=== PATIENT | female | born 1960 | race Caucasian/White ===

== ENCOUNTER 2023-11-22 09:41 | Emergency (ER) | payer MEDICARE, OTHER, SELFPAY ==
[2023-11-22 09:47] VITALS: BP 163/93
[2023-11-22 11:12] VITALS: BMI 29.9
--- NOTE | 2023-11-22 11:24 | ED.GENMED ---
History of Present Illness
General
Chief Complaint: Abdominal Pain
Time Seen by Provider: 11/22/23 11:05
Travel History
Have you had any contact with someone who has COVID-19?: No
Do you have any symptoms of coronavirus? Fever > 100 degrees, chills, cough, shortness of breath, sore throat, loss of taste or smell, muscle aches, or headache?: No
History of Present Illness
History of Present Illness:
63-year-old female presents to the emergency department for evaluation of lower abdominal pain. She states it feels comparable to past bouts of diverticulitis. Has never required admission or surgical intervention for her diverticulitis. Denies
any fever, chills, sweats, nausea, vomiting, or diarrhea. Began 2 days ago. Prior history of appendectomy, no other bowel surgeries
Past History
Past History
ED Past Medical History: Other (atopic derm on Dupixant)
ED Past Surgical History: Appendectomy, Gynecological and Other (rhinoplasty, partial thyroidectomy)
Social History
Tobacco: Non-smoker
Personal:
Review of Systems
Review of Systems
Allergies reviewed?: Yes
All Other Systems: ROS reviewed and negative except as documented in HPI and ROS
Phy Exam
Physical Exam
Physical Exam:
GEN: Well appearing, NAD, WDWN
Eyes: PERRLA, EOMs intact, no scleral icterus
HENT: NCAT, oral mucosa moist
Lungs: CTAB, no wheezes, rales, rhonchi, normal chest wall excursion
Cardiac: RRR, no M/R/G, no peripheral edema. Radial pulses 2+ bilat
Abdomen: Soft, moderate to severe tenderness in the left lower quadrant as well as right lower quadrant with positive rebound, no rigidity
Neuro: AO x 3
MSK: No gross deformity or ecchymosis.
Skin: No rashes, petechiae. Normal color, no pallor or jaundice.
Psych: Calm, cooperative, proper hygiene
Course
Orders/Labs/Results
Orders:
Orders
11/22/23 11:24
CT Abd/Pel (IV only)-DH only Urgent
Comment:
Reason For Exam: LLQ pain
11/22/23 11:26
Complete Blood Count/With Diff Urgent
Comprehensive Metabolic Panel Urgent
11/22/23 11:31
Urinalysis Reflex To Culture Urgent
Date Specimen was Collected: 11/22/23
Time Specimen was Collected: 11:29
Urine Microscopic Reflex Cult Urgent
Urine Culture Urgent
MARIA ELENA Source: U
Specimen Description:
Date Specimen was Collected: 11/22/23
Time Specimen was Collected: :
Abnormal Lab Results
11/22/23 11/22/23
11:26 11:31
WBC 11.4 H 10^3/uL
(4.8-10.8)
Absolute Neuts (auto) 8.8 H 10^3/uL
(1.4-6.5)
Absolute Monos (auto) 0.9 H 10^3/uL
(0.1-0.6)
Neutrophils % 77.3 H %
(42.2-75.2)
Lymphocytes % 14.1 L %
(20.5-51.1)
Sodium 134 L mmol/L
(135-145)
Glucose 143 H mg/dl
(70-99)
Total Bilirubin 3.3 H mg/dl
(0.2-1.3)
Urine Ketones Trace A
(Negative)
Ur Occult Blood Reflex 2+ A
(Negative)
Leukocyte Esterase Rfl 2+ A
(Negative)
11/22/23 11:26
11/22/23 11:26
Vital Signs
Initial and Last Documented VS:
Initial Vital Signs
Temp Pulse Resp BP Pulse Ox
99.3 F 94 16 163/93 98
11/22/23 09:47 11/22/23 09:47 11/22/23 09:47 11/22/23 09:47 11/22/23 09:47
Last Documented Vital Signs
Temp Pulse Resp BP Pulse Ox
99.3 F 94 16 163/93 98
11/22/23 09:47 11/22/23 09:47 11/22/23 09:47 11/22/23 09:47 11/22/23 09:47
MDM/Problems Addressed
MDM/Problems Addressed:
CT shows acute diverticulitis without complicating factors such as perforation or abscess. Patient's labs are within reason, she has mild leukocytosis. Urinalysis may represent UTI however this will be covered adequately by the antibiotics. She
is encouraged to adhere to a strict clear liquid diet for the next 48 to 72 hours in addition to antibiotics. Due to penicillin allergy we will treat with ciprofloxacin and metronidazole. Patient is tolerating p.o. fluids thus I do not see any
indication for admission for IV antibiotics. Clinically well, nonseptic
*Critical Care Note
Total Time (30-74mins, 75-104mins- exclusive of procedures): Not Applicable
ED Attending Note
-
Portions of this chart may have been created with voice recognition software.� Occasional wrong word or��sound alike� substitutions may have occurred due to the inherent limitations of voice recognition software.
Discharge Plan
Departure
Patient Disposition: Home (Routine Discharge)
Date of Disposition: 11/22/23
Time of Disposition: 12:55
Patient with high blood pressure during this ER visit?: No
Discharge Problem:
Acute diverticulitis
Instructions: Clear Liquid Diet, Diverticulitis (DC)
Prescriptions:
New
ciprofloxacin HCl 500 mg tablet
500 mg PO BID 10 Days Qty: 20 0RF
metronidazole 500 mg tablet
500 mg PO Q8H 10 Days Qty: 30 0RF
No Action
zinc 25 mg Tablet
25 mg PO .FEW TIMES A WEEK
magnesium 100 mg Tablet
50 mg PO HS
cholecalciferol (vitamin D3) [Vitamin D3] 25 mcg (1,000 unit) Tablet,Chewable
50 mcg PO DAILY
cranberry juice Liquid
1 ea PO .FEW TIMES A WEEK
Dupixent Syringe 300 mg/2 mL Syringe
300 mg SC Q3W
Referrals:
Jai Hooks I., [Family Provider] -
Interventions
Interventions:
*Risk Screen - Suicide Last Done: 11/22/23 11:12
*General Assessment Last Done: 11/22/23 11:12
*Neglect/Abuse Screening Last Done: 11/22/23 11:12
ED- Fall Risk Assessment Last Done: 11/22/23 11:12
*ED COVID-19 Vaccine History Last Done: 11/22/23 09:47
*Nursing Disposition Last Done: 11/22/23 13:04
JT-[id number]-[id number] Assessment Last Done: 11/22/23 11:13
[2023-11-22 11:34] LABS: % Basophils 0.2 % (0-2); % Eosinophils 0.2 % (0-6); % Immature Granulocytes 0.4 % (0-0.5); % Lymphocytes 14.1 % (20.5-51.1); % Monocytes 7.8 % (1.7-9.3); % Neutrophils 77.3 % (42.2-75.2); Absolute Lymphocytes 1.6 10^3/uL (1.2-3.4); Absolute Monocytes 0.9 10^3/uL (0.1-0.6); Absolute Neutrophils 8.8 10^3/uL (1.4-6.5); Hematocrit 41.7 % (37.0-47.0); Hemoglobin 14.6 g/dL (12.0-16.0); Mean Corpuscular Hgb 29.6 pg (27.0-31.0); Mean Corpuscular Volume 84.4 fL (81.0-99.0); Mean Platelet Volume 9.8 fL (7.4-10.4); Nucleated Red Blood Cells % 0 %; Platelet Count 160 10^3/uL (130-400); Red Blood Cell Count 4.94 10^6/uL (4.20-5.40); Red Cell Dist. Width 12.5 % (11.5-14.5); White Blood Cell Count 11.4 10^3/uL (4.8-10.8)
[2023-11-22 11:45] LABS: ALT (SGPT) 21 U/L (0-35); AST (SGOT) 24 U/L (14-36); Albumin 4.3 g/dl (3.5-5.0); Alkaline Phosphatase 88 U/L (38-126); Blood Urea Nitrogen 8 mg/dl (7-17); Carbon Dioxide 25 mmol/L (22-30); Chloride 102 mmol/L (98-107); Estimated Creatinine Clearance 87 ml/min; Glucose 143 mg/dl (70-99); Potassium 3.8 mmol/L (3.5-5.1); Sodium 134 mmol/L (135-145); Total Bilirubin 3.3 mg/dl (0.2-1.3); Total Protein 7.2 g/dl (6.3-8.2); eGFR > 60.00
[2023-11-22 12:14] LABS: Urine Albumin Trace (Neg - Trace); Urine Bilirubin Negative (Negative); Urine Character Clear (Clear); Urine Color Yellow; Urine Glucose Negative (Negative); Urine Ketone Trace (Negative); Urine Leukocyte 2+ (Negative); Urine Nitrite Negative (Negative); Urine Occult Blood 2+ (Negative); Urine Urobilinogen Negative (Neg - 1+)
[2023-11-22 13:30] LABS: Urine Squamous Cell 0-2 /LPF (Few)
[2023-11-22 13:33] LABS: Urine Bacteria Moderate (Negative)
== END 2023-11-22 13:27 | disposition home or self-care (01) ==
LOC: EMR 09:41
PROVIDERS: Physician Assistant; EMERGENCY PHYSICIAN Emergency Medicine; FAMILY PHYSICIAN Internal Medicine
DX: K57.92 Diverticulitis of intestine, part unspecified, without perforation or abscess without bleeding (principal); Z88.6 Allergy status to analgesic agent; Z88.0 Allergy status to penicillin
CPT/HCPCS: 99285; 74177; 80053; 81003; 81015; 85025; 87086; Q9967

== ENCOUNTER 2024-04-16 14:58 | Emergency (ER) | payer MEDICARE, OTHER, SELFPAY ==
[2024-04-16 15:00] VITALS: BP 208/120
[2024-04-16 15:38] VITALS: BP 156/83
[2024-04-16 15:41] VITALS: BMI 30.5
[2024-04-16 15:57] LABS: % Basophils 0.6 % (0-2); % Eosinophils 2.6 % (0-6); % Immature Granulocytes 0.2 % (0-0.5); % Lymphocytes 28.3 % (20.5-51.1); % Monocytes 8.5 % (1.7-9.3); % Neutrophils 59.8 % (42.2-75.2); Absolute Eosinophils 0.1 10^3/uL (0-0.7); Absolute Lymphocytes 1.4 10^3/uL (1.2-3.4); Absolute Monocytes 0.4 10^3/uL (0.1-0.6); Hematocrit 39.8 % (37.0-47.0); Mean Corp Hgb Conc. 35.2 g/dL (33.0-37.0); Mean Corpuscular Hgb 29.1 pg (27.0-31.0); Mean Corpuscular Volume 82.7 fL (81.0-99.0); Mean Platelet Volume 9.4 fL (7.4-10.4); Nucleated Red Blood Cells % 0 %; Platelet Count 157 10^3/uL (130-400); Red Blood Cell Count 4.81 10^6/uL (4.20-5.40); Red Cell Dist. Width 12.4 % (11.5-14.5); White Blood Cell Count 5.1 10^3/uL (4.8-10.8)
[2024-04-16 16:15] LABS: ALT (SGPT) 22 U/L (0-35); AST (SGOT) 32 U/L (14-36); Albumin 4.4 g/dl (3.5-5.0); Alkaline Phosphatase 102 U/L (38-126); Blood Urea Nitrogen 14 mg/dl (7-17); Calcium 9.8 mg/dl (8.4-10.2); Carbon Dioxide 25 mmol/L (22-30); Chloride 104 mmol/L (98-107); Estimated Creatinine Clearance 77 ml/min; Glucose 106 mg/dl (70-99); Sodium 137 mmol/L (135-145); Total Bilirubin 1.7 mg/dl (0.2-1.3); Total Protein 7.2 g/dl (6.3-8.2); eGFR > 60.00
[2024-04-16 16:23] LABS: Troponin I < 0.012 ng/ml
[2024-04-16 16:34] VITALS: BP 147/91
[2024-04-16 17:00] VITALS: BP 137/77
--- NOTE | 2024-04-16 17:10 | ED.GENMED ---
History of Present Illness
General
Chief Complaint: Cardiac Symptoms
Time Seen by Provider: 04/16/24 15:35
History of Present Illness
History of Present Illness:
63-year-old female presents to the emergency department for evaluation of chest pain that began yesterday. She does note that she was doing yard work on Friday however did not have any pain at that time. He was sitting at rest when the pain began
yesterday. Pain is nonpleuritic but does radiate to the thoracic back. Does not radiate to the shoulders of the arms. No paresthesias. No shortness of breath. Denies any exertional nature to the pain. Has never experienced anything similar.
Past History
Past History
ED Past Medical History: Other (atopic derm on Dupixant)
ED Past Surgical History: Appendectomy, Gynecological and Other (rhinoplasty, partial thyroidectomy)
Social History
Tobacco: Non-smoker
Personal:
Review of Systems
Review of Systems
Allergies reviewed?: Yes
All Other Systems: ROS reviewed and negative except as documented in HPI and ROS
Phy Exam
Physical Exam
Physical Exam:
GEN: Well appearing, NAD, WDWN
Eyes: PERRLA, EOMs intact, no scleral icterus
HENT: NCAT, oral mucosa moist
Lungs: CTAB, no wheezes, rales, rhonchi, normal chest wall excursion
Cardiac: RRR, no M/R/G, no peripheral edema. Radial pulses 2+ bilat
Neuro: AO x 3, no focal deficits to BUE/BLE, normal sensation throughout
MSK: No gross deformity or ecchymosis. No edema. No digital clubbing
Skin: No rashes, petechiae. Normal color, no pallor or jaundice.
Psych: Calm, cooperative, proper hygiene
Course
Orders/Labs/Results
Orders:
Orders
04/16/24 15:03
ECG [Electrocardiogram (*1)] Urgent
Reason for Study: Chest Pain
EKG- Treatment ONCE
04/16/24 15:41
CR Chest - 2 Views Urgent
Comment:
Reason For Exam: chest pain
04/16/24 15:48
Complete Blood Count/With Diff Urgent
Comprehensive Metabolic Panel Urgent
Troponin I Urgent
04/16/24 16:36
Ketorolac [Toradol] 15 mg IV NOW STA
Abnormal Lab Results
04/16/24
15:48
Glucose 106 H mg/dl
(70-99)
Total Bilirubin 1.7 H mg/dl
(0.2-1.3)
04/16/24 15:48
04/16/24 15:48
Vital Signs
Initial and Last Documented VS:
Initial Vital Signs
Temp Pulse Resp BP Pulse Ox
98.3 F 86 20 208/120 98
04/16/24 15:00 04/16/24 15:00 04/16/24 15:00 04/16/24 15:00 04/16/24 15:00
Last Documented Vital Signs
Temp Pulse Resp BP Pulse Ox
98.3 F 74 15 156/83 97
04/16/24 15:00 04/16/24 15:45 04/16/24 15:45 04/16/24 15:38 04/16/24 15:45
MDM/Problems Addressed
MDM/Problems Addressed:
63-year-old female presents with nonexertional chest pain that began yesterday. Her EKG is nonischemic and troponin is negative. Patient repeat troponin presents with pain greater than 24 hours. She was markedly hypertensive on arrival however
this gradually trended down to her emergency department stay. She does relate a history of hypertension that she has opted to avoid pharmaceuticals for. Uncertain if this chest pain represents angina at this point, certainly she has risk factors
for with untreated hypertension. Will start her on metoprolol for antianginal and hypertensive benefits as well as low-dose aspirin. Will refer her to cardiology through the chest pain hotline. Chest x-ray is reassuring and there is no evidence
of pulmonary pathology
Comment
Comment:
EKG independently interpreted by me shows normal sinus rhythm at a rate of [address] changes concerning for ischemia
*Critical Care Note
Total Time (30-74mins, 75-104mins- exclusive of procedures): Not Applicable
ED Attending Note
-
Portions of this chart may have been created with voice recognition software.� Occasional wrong word or��sound alike� substitutions may have occurred due to the inherent limitations of voice recognition software.
Discharge Plan
Departure
Patient Disposition: Home (Routine Discharge)
Date of Disposition: 04/16/24
Time of Disposition: 17:28
Patient with high blood pressure during this ER visit?: Yes
Discharge Problem:
Chest pain, Hypertension, uncontrolled
Instructions: Chest Pain CBC Follow Up
Prescriptions:
New
metoprolol succinate 25 mg tablet extended release 24 hr
25 mg PO DAILY Qty: 30 0RF
aspirin 81 mg tablet,chewable
81 mg PO DAILY Qty: 30 0RF
No Action
cholecalciferol (vitamin D3) [Vitamin D3] 25 mcg (1,000 unit) Tablet,Chewable
50 mcg PO DAILY
Dupixent Syringe 300 mg/2 mL Syringe
300 mg SC Q3W
B Complex Tablet Extended Release
1 tab PO .2X WEEKLY
ibuprofen 200 mg Capsule
200 mg PO Q6H PRN (Reason: mild pain)
zinc sulfate 50 mg zinc (220 mg) Tablet
50 mg PO DAILY
ascorbic acid (vitamin C) [Vitamin C] 500 mg Tablet
500 mg PO DAILY
magnesium 250 mg Tablet
250 mg PO .2X WEEKLY
Referrals:
Jai Hooks I., DO [Family Provider] -
Interventions
Interventions:
*Risk Screen - Suicide Last Done: 04/16/24 15:00
*General Assessment Last Done: 04/16/24 15:00
*Neglect/Abuse Screening Last Done: 04/16/24 15:00
ED- Fall Risk Assessment Last Done: 04/16/24 15:56
*ED COVID-19 Vaccine History Last Done: 04/16/24 15:54
ED- Pulmonary Assessment Last Done: 04/16/24 15:56
ED- Cardiac Assessment Last Done: 04/16/24 15:56
Discharge Date and Time
Print Language: LATVIAN
[2024-04-16 18:02] VITALS: BP 137/77
== END 2024-04-16 18:02 | disposition home or self-care (01) ==
LOC: EMR 14:58
PROVIDERS: Physician Assistant; EMERGENCY PHYSICIAN Emergency Medicine; FAMILY PHYSICIAN Internal Medicine
DX: R07.89 Other chest pain (principal); I10 Essential (primary) hypertension; Z90.49 Acquired absence of other specified parts of digestive tract
CPT/HCPCS: 99283; 96374; 71046; 80053; 84484; 85025; 93005

== ENCOUNTER → 2024-05-12 10:17 | Outpatient (REF) | payer MEDICARE, OTHER, SELFPAY | LOC: RCS 10:17 | PROVIDERS: ATTENDING PHYSICIAN Internal Medicine; FAMILY PHYSICIAN Internal Medicine | DX: R00.2 Palpitations (principal) | CPT/HCPCS: 93225; 93226 ==

== ENCOUNTER → 2024-05-17 12:45 | Outpatient (REF) | payer MEDICARE, OTHER, SELFPAY | LOC: RCS 12:45 | PROVIDERS: ATTENDING PHYSICIAN Internal Medicine; FAMILY PHYSICIAN Internal Medicine | DX: R07.9 Chest pain, unspecified (principal); R00.2 Palpitations | CPT/HCPCS: 93017; 93350 ==

== ENCOUNTER → 2024-05-18 07:51 | Outpatient (REF) | payer MEDICARE, OTHER, SELFPAY | LOC: HWRCS 07:51 | PROVIDERS: ATTENDING PHYSICIAN Internal Medicine; FAMILY PHYSICIAN Internal Medicine | DX: R07.9 Chest pain, unspecified (principal) | CPT/HCPCS: 93306 ==

== ENCOUNTER → 2024-05-20 10:29 | Outpatient (REF) | payer MEDICARE, OTHER, SELFPAY ==
[2024-05-20 12:32] LABS: HDL Cholesterol 79 mg/dl; LDL Cholesterol, Calculated 166 mg/dl; Total Cholesterol 273 mg/dl (50-199); Triglyceride 141 mg/dl (10-149); Very Low Density Lipoprotein 28 mg/dl (0-30)
[2024-05-20 12:41] LABS: Glycohemoglobin (HgbA1c) 5.6 % (4.0-5.6)
[2024-05-20 13:03] LABS: TSH 0.45 uIU/ml (0.47-4.68)
== END ==
LOC: REG 10:29
PROVIDERS: ATTENDING PHYSICIAN Internal Medicine; FAMILY PHYSICIAN Internal Medicine
DX: R07.9 Chest pain, unspecified (principal); R73.09 Other abnormal glucose; R94.6 Abnormal results of thyroid function studies
CPT/HCPCS: 36415; 80061; 83036; 84443

== ENCOUNTER 2024-06-25 13:03 | Emergency (ER) | payer MEDICARE, OTHER, SELFPAY ==
[2024-06-25 13:07] VITALS: BP 169/99
[2024-06-25 13:41] LABS: % Basophils 0.2 % (0-2); % Eosinophils 0.2 % (0-6); % Immature Granulocytes 0.2 % (0-0.5); % Lymphocytes 22.7 % (20.5-51.1); % Monocytes 5.5 % (1.7-9.3); % Neutrophils 71.2 % (42.2-75.2); Absolute Lymphocytes 1.2 10^3/uL (1.2-3.4); Absolute Monocytes 0.3 10^3/uL (0.1-0.6); Absolute Neutrophils 3.8 10^3/uL (1.4-6.5); Hematocrit 41.6 % (37.0-47.0); Hemoglobin 14.7 g/dL (12.0-16.0); Mean Corp Hgb Conc. 35.3 g/dL (33.0-37.0); Mean Corpuscular Hgb 29.4 pg (27.0-31.0); Mean Corpuscular Volume 83.2 fL (81.0-99.0); Mean Platelet Volume 9.8 fL (7.4-10.4); Nucleated Red Blood Cells % 0 %; Platelet Count 212 10^3/uL (130-400); Red Cell Dist. Width 12.3 % (11.5-14.5); White Blood Cell Count 5.3 10^3/uL (4.8-10.8)
[2024-06-25 14:05] VITALS: BMI 28.9
[2024-06-25 14:05] LABS: ALT (SGPT) 28 U/L (0-35); AST (SGOT) 35 U/L (14-36); Albumin 4.8 g/dl (3.5-5.0); Alkaline Phosphatase 81 U/L (38-126); Blood Urea Nitrogen 14 mg/dl (7-17); Calcium 9.7 mg/dl (8.4-10.2); Carbon Dioxide 25 mmol/L (22-30); Chloride 104 mmol/L (98-107); Glucose 133 mg/dl (70-99); Sodium 141 mmol/L (135-145); Total Bilirubin 1.5 mg/dl (0.2-1.3); Total Protein 7.7 g/dl (6.3-8.2); eGFR > 60.00
[2024-06-25 14:17] LABS: Troponin I < 0.012 ng/ml
[2024-06-25 14:25] VITALS: BP 134/87
--- NOTE | 2024-06-25 14:42 | ED.GENMED ---
History of Present Illness
General
Chief Complaint: Dizziness
Source: patient
Exam Limitations: none
Time Seen by Provider: 06/25/24 14:08
Nursing documentation reviewed up to this point in time: agreed with
History of Present Illness
History of Present Illness:
The patient is a 63-year-old female with past medical history of newly diagnosed atrial fibrillation, and a history of hypertension, who reports for the last few weeks to months she has been experiencing intermittent dizziness and high blood
pressure readings. Patient reports that she was frequently monitoring her blood pressure at home up until recently, and had high blood pressure readings. At times, her blood pressure was over 200 systolic. Patient reports that she feels she gets
dizzy when her blood pressure elevates. She describes the dizziness as a feeling of ' cotton filling her head.' The patient denies chest pain and shortness of breath. Patient reports she has chronic palpitations and has palpitations from time to
time. Patient reports that this is her fourth or fifth emergency visit this summer for similar symptoms of dizziness and high blood pressure. The patient reports that she is followed by Dr. Quinones who recommended that she get thyroid test done.
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 Patient reports that she is also not been feeling well because she has suffered with back pain from sciatica and has stress from getting a new car 2
days ago. Patient denies leg pain and leg swelling. She denies weakness and numbness. She denies fever and nasal congestion. She denies difficulty walking and vision changes. Patient is wondering if her blood pressure medication should be
changed or adjusted.
Past History
Past History
ED Past Medical History: Arrthythmia, HTN and Other (atopic derm on Dupixant)
ED Past Surgical History: Appendectomy and Gynecological
Social History
Tobacco: Non-smoker
Alcohol: Other
Drug: None
Personal:
Living: with family
Employment: Other
Family History
Family History: Other
Phy Exam
Physical Exam
Physical Exam:
Physical Exam
General: no apparent distress, not acutely ill
Neck: supple. no meningeal signs. normal psoterior pharynx
Heart: s1/s2 regular rate and rhythm, no murmur. equal radial pulses.
Lungs: no acute respiratory distress. clear bilaterally
Abdomen: normal bowel sounds. not tender. no CVAT
Neuro: alert and orientedx3. no focal neurological deficits. Cranial nerves equal and symmetric bilaterally. Extraocular muscles intact. Normal [id number].
Skin: no rash
Psychiatric: well kept. interactive and cooperative
Extremities: no edema. no calf tenderness. negative homans. good distal pulses
Course
Orders/Labs/Results
Orders:
Orders
06/25/24 13:09
Electrocardiogram (*1) Urgent
Reason for Study: Vertigo / Dizzy
EKG- Treatment ONCE
06/25/24 13:30
CT Head W/o Iv Contrast Urgent
Comment:
Reason For Exam: dizziness
06/25/24 13:33
Comprehensive Metabolic Panel Urgent
Free T3 Urgent
Comment: FREE T4 & FREE T3 ADDED ON BY FLOOR 3PM 06-25-24
Free T4 Urgent
Magnesium Urgent
TSH Reflex To Free T4 Urgent
Troponin I Urgent
06/25/24 13:34
Complete Blood Count/With Diff Urgent
06/25/24 15:00
Add On- LAB Urgent
Tests Added?: free T4, free T3, total T3
Abnormal Lab Results
06/25/24
13:33
Glucose 133 H mg/dl
(70-99)
Total Bilirubin 1.5 H mg/dl
(0.2-1.3)
06/25/24 13:34
06/25/24 13:33
Vital Signs
Initial and Last Documented VS:
Initial Vital Signs
Temp Pulse Resp BP Pulse Ox
98.1 F 96 16 169/99 96
06/25/24 13:07 06/25/24 13:07 06/25/24 13:07 06/25/24 13:07 06/25/24 13:07
Last Documented Vital Signs
Temp Pulse Resp BP Pulse Ox
98.1 F 66 18 130/75 98
06/25/24 13:07 06/25/24 15:45 06/25/24 15:45 06/25/24 15:00 06/25/24 15:45
MDM/Problems Addressed
Differential Diagnosis Includes:
Hypertensive urgency, hypertensive emergency, CVA
MDM/Problems Addressed:
Patient presents with subacute dizziness and high blood pressure readings at home
Chronic conditions affecting care: HTN
Acute Exacerbation and/or Progression of Chronic Illness:
Given patient's history of high blood pressure and A-fib, she could be at increased risk of stroke
Acute Exacerbation and/or Progression of Chronic Illness: HTN
*Radiology
Radiology exam reviewed: radiology read reviewed
*Pulse Oximetry
Patient hypoxic: no
*EKG
Interpreted by ED Provider?: Yes
Interpretation: normal
Comparison EKG: no changes
Rate: normal
[place]: normal axis
Interval: normal interval
QRS Pattern: normal QRS
Ischemia: no ischemia
*Water Jet Operator Interpretation
Rate: normal
Interpretation: normal
Rhythm: sinus
*Critical Care Note
Total Time (30-74mins, 75-104mins- exclusive of procedures): Not Applicable
Data Reviewed
Review of Other/Old Records Reveals: Testing (Cardiac echo and stress test without any significant abnormalities reviewed from 04/2024)
Source: patient
Patient Management
Social determinants of health affecting care: Living situation and Strong social support
Escalation/DeEscalation of care consider admission/obs:
Patient remains well and comfortable appearing. She has a normal neurological exam and her CT shows no acute abnormalities. It is doubtful she is having a stroke.
Case discussed with Dr. Quinones who recommends that patient be started on valsartan 40 mg daily to have better control of her blood pressure. Patient is comfortable with this plan. Her EKG appears normal. She has had no chest pain to suggest
acute coronary syndrome.
ED Attending Note
-
Portions of this chart may have been created with voice recognition software.� Occasional wrong word or��sound alike� substitutions may have occurred due to the inherent limitations of voice recognition software.
Discharge Plan
Departure
Patient Disposition: Home (Routine Discharge)
Date of Disposition: 06/25/24
Time of Disposition: 16:01
Patient with high blood pressure during this ER visit?: Yes
Condition: Good
Covid-19: Not Applicable
Discharge Problem:
Dizziness
Instructions: Dizziness, BLOOD PRESSURE
Prescriptions:
New
valsartan 40 mg tablet
40 mg PO DAILY Qty: 30 0RF
No Action
cholecalciferol (vitamin D3) [Vitamin D3] 25 mcg (1,000 unit) Tablet,Chewable
50 mcg PO DAILY
Dupixent Syringe 300 mg/2 mL Syringe
300 mg SC Q3W
B Complex Tablet Extended Release
1 tab PO .2X WEEKLY
ibuprofen 200 mg Capsule
200 mg PO Q6H PRN (Reason: mild pain)
zinc sulfate 50 mg zinc (220 mg) Tablet
50 mg PO DAILY
ascorbic acid (vitamin C) [Vitamin C] 500 mg Tablet
500 mg PO DAILY
magnesium 250 mg Tablet
250 mg PO .2X WEEKLY
metoprolol succinate 25 mg tablet extended release 24 hr
25 mg PO DAILY Qty: 30 0RF
aspirin 81 mg tablet,chewable
81 mg PO DAILY Qty: 30 0RF
Referrals:
Ron Guzman MD [Active] - (call to see in about 7-10 days)
Jai Hooks I., DO [Family Provider] -
Interventions
Interventions:
*Risk Screen - Suicide Last Done: 06/25/24 13:07
*General Assessment Last Done: 06/25/24 13:07
*Neglect/Abuse Screening Last Done: 06/25/24 13:07
ED- Fall Risk Assessment Last Done: 06/25/24 14:30
*ED COVID-19 Vaccine History Last Done: 06/25/24 14:30
*Nursing Disposition Last Done: 06/25/24 16:19
ED- Neurological Assessment Last Done: 06/25/24 14:30
ED- Cardiac Assessment Last Done: 06/25/24 14:30
ED Swallowing Screen Last Done: 06/25/24 14:30
Discharge Date and Time
Discharge Date/Time: 06/25/24 16:20
Print Language: SOUTH [place]FR[place]
[2024-06-25 15:00] VITALS: BP 130/75
[2024-06-25 15:56] LABS: Free T4 1.08 ng/dl (0.78-2.19)
[2024-06-28 17:28] LABS: Total T3 (Sendout) 96 ng/dL (80-200)
== END 2024-06-25 16:20 | disposition home or self-care (01) ==
LOC: EMR 13:03
PROVIDERS: Emergency Medicine; EMERGENCY PHYSICIAN Emergency Medicine; FAMILY PHYSICIAN Internal Medicine
DX: R42 Dizziness and giddiness (principal); I10 Essential (primary) hypertension; I48.91 Unspecified atrial fibrillation
CPT/HCPCS: 99285; 70450; 80053; 83735; 84439; 84443; 84480; 84481; 84484; 85025; 93005

== ENCOUNTER → 2024-07-12 07:04 | Outpatient (REF) | payer MEDICARE, OTHER, SELFPAY ==
[2024-07-12 08:25] LABS: Blood Urea Nitrogen 10 mg/dl (7-17); Calcium 9.6 mg/dl (8.4-10.2); Carbon Dioxide 26 mmol/L (22-30); Chloride 103 mmol/L (98-107); Glucose 115 mg/dl (70-99); Potassium 4.1 mmol/L (3.5-5.1); Sodium 142 mmol/L (135-145); eGFR > 60.00
[2024-07-12 08:45] LABS: Cortisol, Random 12.6 ug/dl; TSH Reflex To Free T4 0.65 uIU/ml (0.47-4.68)
[2024-07-13 20:57] LABS: Adrenocorticotropic Hormone 27.7 pg/mL (7.2-63.3)
[2024-07-13 23:35] LABS: Aldosterone, Serum 8.5 ng/dL
[2024-07-14 17:07] LABS: Renin Activity Results 0.6 ng/mL/hr
== END ==
LOC: REG 07:04
PROVIDERS: FAMILY PHYSICIAN Internal Medicine; OTHER PHYSICIAN Internal Medicine
DX: R25.1 Tremor, unspecified (principal); I10 Essential (primary) hypertension
CPT/HCPCS: 36415; 80048; 82024; 82088; 82533; 83835; 84244; 84443

== ENCOUNTER → 2024-07-13 13:07 | Outpatient (REF) | payer MEDICARE, OTHER, SELFPAY | LOC: RAD 13:07 | PROVIDERS: FAMILY PHYSICIAN Internal Medicine | DX: E04.1 Nontoxic single thyroid nodule (principal) | CPT/HCPCS: 76536 ==

== ENCOUNTER → 2024-07-15 11:07 | Outpatient (REF) | payer MEDICARE, OTHER, SELFPAY | LOC: DHSLP 11:07 | PROVIDERS: ATTENDING PHYSICIAN Internal Medicine Critical Care Medicine; FAMILY PHYSICIAN Internal Medicine | DX: G47.19 Other hypersomnia (principal); R06.83 Snoring | CPT/HCPCS: 95800 ==

== ENCOUNTER → 2024-07-21 12:35 | Outpatient (REF) | payer MEDICARE, OTHER, SELFPAY ==
[2024-07-21 12:53] VITALS: BP 176/87; BP_SYST 93
== END ==
LOC: RADI 12:35
PROVIDERS: ATTENDING PHYSICIAN Internal Medicine Endocrinology, Diabetes & Metabolism; FAMILY PHYSICIAN Internal Medicine; REFERRING PHYSICIAN Internal Medicine
DX: E04.1 Nontoxic single thyroid nodule (principal)
CPT/HCPCS: 88173; 10005

== ENCOUNTER → 2024-08-02 13:18 | Outpatient (REF) | payer MEDICARE, OTHER, SELFPAY | LOC: HWRAD 13:18 | PROVIDERS: ATTENDING PHYSICIAN Internal Medicine Endocrinology, Diabetes & Metabolism; FAMILY PHYSICIAN Internal Medicine; REFERRING PHYSICIAN Internal Medicine | DX: I10 Essential (primary) hypertension (principal) | CPT/HCPCS: 93975 ==

== ENCOUNTER 2024-08-23 17:10 | Emergency (ER) | payer MEDICARE, OTHER, SELFPAY ==
[2024-08-23 17:15] VITALS: BP 190/101
[2024-08-23 18:10] LABS: % Basophils 0.6 % (0-2); % Eosinophils 1.3 % (0-6); % Immature Granulocytes 0.2 % (0-0.5); % Lymphocytes 29.2 % (20.5-51.1); % Monocytes 6.2 % (1.7-9.3); % Neutrophils 62.5 % (42.2-75.2); Absolute Eosinophils 0.1 10^3/uL (0-0.7); Absolute Lymphocytes 1.6 10^3/uL (1.2-3.4); Absolute Monocytes 0.3 10^3/uL (0.1-0.6); Absolute Neutrophils 3.3 10^3/uL (1.4-6.5); Hematocrit 40.7 % (37.0-47.0); Hemoglobin 14.1 g/dL (12.0-16.0); Mean Corp Hgb Conc. 34.6 g/dL (33.0-37.0); Mean Corpuscular Hgb 29.3 pg (27.0-31.0); Mean Corpuscular Volume 84.4 fL (81.0-99.0); Nucleated Red Blood Cells % 0 %; Platelet Count 178 10^3/uL (130-400); Red Blood Cell Count 4.82 10^6/uL (4.20-5.40); Red Cell Dist. Width 12.8 % (11.5-14.5); White Blood Cell Count 5.3 10^3/uL (4.8-10.8)
[2024-08-23 18:22] LABS: ALT (SGPT) 25 U/L (0-35); AST (SGOT) 30 U/L (14-36); Albumin 4.7 g/dl (3.5-5.0); Alkaline Phosphatase 84 U/L (38-126); Blood Urea Nitrogen 12 mg/dl (7-17); Calcium 9.6 mg/dl (8.4-10.2); Carbon Dioxide 26 mmol/L (22-30); Chloride 102 mmol/L (98-107); Glucose 111 mg/dl (70-99); Potassium 4.4 mmol/L (3.5-5.1); Sodium 142 mmol/L (135-145); Total Bilirubin 1.5 mg/dl (0.2-1.3); Total Protein 7.6 g/dl (6.3-8.2); eGFR > 60.00
[2024-08-23 19:12] VITALS: BP 154/92
[2024-08-23 20:30] VITALS: BP 142/76
[2024-08-23 21:00] VITALS: BP 153/81
[2024-08-23] MEDS: TYLENOL 650 MG PO (21:11)
--- NOTE | 2024-08-23 21:11 | ED.GENMED ---
History of Present Illness
General
Chief Complaint: Blood Pressure Problem
Source: patient
Exam Limitations: none
Time Seen by Provider: 08/23/24 20:34
Nursing documentation reviewed up to this point in time: agreed with
History of Present Illness
History of Present Illness:
64-year-old female PAF, nondrinker non-smoker on Cardizem Eliquis and losartan followed by cardiology and her PCP been having some low back pain intermittently and spikes of blood pressure with anxiety, yesterday had some familial stress, felt her
blood pressure may be up went to see her chiropractor today for her low back pain was manipulated blood pressure was elevated like 190/100 referred to the ER, back pain feeling better she did take her evening blood pressure meds, no chest pain or
shortness of breath does feel some flushing when she gets the spells, she has had about 4 episodes, she says her rn rehab is working up for pheochromocytoma she has no chest pain no shortness of breath no diaphoresis now is resting
comfortably does admit to some anxiety intermittently, tells me her family members have mentioned she may need some anxiety meds she appears amenable to trying something
Past History
Past History
ED Past Medical History: Arrthythmia, HTN and Other (atopic derm on Dupixant)
ED Past Surgical History: Appendectomy and Gynecological
Social History
Tobacco: Non-smoker
Alcohol: Other
Drug: None
Personal:
Living: with family
Employment: Other
Family History
Family History: Other
Review of Systems
Review of Systems
All Other Systems: Not applicable
Constitutional: Denies fatigue
EENT: Reports no symptoms
Respiratory: Denies cough or trouble breathing
Cardiac: Denies chest pain or palpitations
ABD/GI: Reports no symptoms
: Reports no symptoms
Musculoskeletal: Reports no symptoms
Skin: Reports no symptoms
Neurological: Reports other (Flushing)
Hematologic/Lymphatic: Reports no symptoms
Psychiatric: Reports anxiety
Phy Exam
Physical Exam
Physical Exam:
Physical Exam
General: no apparent distress, not acutely ill
Neck: No jaundice
Heart: s1/s2 regular rate and rhythm, no murmur. equal radial pulses.
Lungs: no acute respiratory distress. clear bilaterally
Neuro: alert and oriented. no focal neurological deficits
Skin: no rash
Psychiatric: well kept. interactive and cooperative
Extremities: no edema.
Course
Orders/Labs/Results
Orders:
Orders
08/23/24 17:12
ECG [Electrocardiogram (*1)] Urgent
Reason for Study: Vertigo / Dizzy
EKG- Treatment ONCE
08/23/24 17:55
Complete Blood Count/With Diff Urgent
Comprehensive Metabolic Panel Urgent
08/23/24 21:03
Acetaminophen [Tylenol] 650 mg PO NOW STA
Abnormal Lab Results
08/23/24
17:55
Glucose 111 H mg/dl
(70-99)
Total Bilirubin 1.5 H mg/dl
(0.2-1.3)
08/23/24 17:55
08/23/24 17:55
Vital Signs
Initial and Last Documented VS:
Initial Vital Signs
Temp Pulse Resp BP Pulse Ox
97.7 F 95 20 190/101 99
08/23/24 17:15 08/23/24 17:15 08/23/24 17:15 08/23/24 17:15 08/23/24 17:15
Last Documented Vital Signs
Temp Pulse Resp BP Pulse Ox
97.7 F 67 11 121/62 98
08/23/24 17:15 08/23/24 22:00 08/23/24 22:00 08/23/24 22:00 08/23/24 22:22
MDM/Problems Addressed
Differential Diagnosis Includes:
Anxiety, etc. hypertension, arrhythmia doubt pheo but it is in the differential
MDM/Problems Addressed:
High blood pressure
Chronic conditions affecting care: HTN and Arrhythmia
Acute Exacerbation and/or Progression of Chronic Illness: Arrhythmia
*Pulse Oximetry
Patient hypoxic: no
*EKG
Interpreted by ED Provider?: Yes
Interpretation: normal
Comparison EKG: no comparison EKG present
Heart Rate: 70
Rate: normal
Rhythm: sinus
Ischemia: no ischemia
*Director Of Convention Services Interpretation
Rate: normal
Interpretation: normal
Heart Rate: 70
Rhythm: sinus
*Critical Care Note
Total Time (30-74mins, 75-104mins- exclusive of procedures): Not Applicable
Update Note
Update Note:
915 patient no acute distress blood pressure is normalized to take repeat dose of meds, EKG noted, no signs of ischemia there, no arrhythmia here, anxiety concern would be playing a part will give her a short course of benzos I encouraged her to
follow-up with PCP
10:25 PM patient feeling well blood pressure stable
ED Attending Note
-
Portions of this chart may have been created with voice recognition software.� Occasional wrong word or��sound alike� substitutions may have occurred due to the inherent limitations of voice recognition software.
Discharge Plan
Departure
Patient Disposition: Home (Routine Discharge)
Date of Disposition: 08/23/24
Time of Disposition: 22:24
Patient with high blood pressure during this ER visit?: Yes
Condition: Good
Discharge Problem:
Hypertension, Anxiety
Instructions: BLOOD PRESSURE
Prescriptions:
New
lorazepam [Ativan] 0.5 mg tablet
0.5 mg PO DAILY PRN (Reason: anxiety) Qty: 10 0RF
No Action
cholecalciferol (vitamin D3) [Vitamin D3] 25 mcg (1,000 unit) Tablet,Chewable
125 mcg PO DAILY
Dupixent Syringe 300 mg/2 mL Syringe
300 mg SC Q3W
B Complex Tablet Extended Release
1 tab PO DAILY
ascorbic acid (vitamin C) [Vitamin C] 500 mg Tablet
1,000 mg PO DAILY
valsartan 40 mg tablet
40 mg PO DAILY Qty: 30 0RF
zinc sulfate 25 mg zinc (110 mg) Tablet
25 mg PO DAILY
diltiazem HCl 120 mg Capsule,Extended Release 24 Hr
120 mg PO DAILY
coenzyme Q10 [CoQ-10] 100 mg Capsule
100 mg PO DAILY
Eliquis 5 mg Tablet
5 mg PO BID
Referrals:
Jai Hooks I., [Family Provider] -
Interventions
Interventions:
*General Assessment Last Done: 08/23/24 20:27
*Neglect/Abuse Screening Last Done: 08/23/24 20:27
ED- Fall Risk Assessment Last Done: 08/23/24 20:27
*ED COVID-19 Vaccine History Last Done: 08/23/24 20:27
ED- Cardiac Assessment Last Done: 08/23/24 20:27
ED- Neurological Assessment Last Done: 08/23/24 20:27
ED- Pulmonary Assessment Last Done: 08/23/24 20:27
Discharge Date and Time
Print Language: SLOV[place]
[2024-08-23 21:30] VITALS: BP 136/75
[2024-08-23 22:00] VITALS: BP 121/62
== END 2024-08-23 22:30 | disposition home or self-care (01) ==
LOC: EMR 17:10
PROVIDERS: Student in an Organized Health Care Education/Training Program; EMERGENCY PHYSICIAN Emergency Medicine; FAMILY PHYSICIAN Internal Medicine
DX: M54.50 Low back pain, unspecified (principal); R41.0 Disorientation, unspecified; R23.2 Flushing; I10 Essential (primary) hypertension; F41.9 Anxiety disorder, unspecified; I48.0 Paroxysmal atrial fibrillation; I34.1 Nonrheumatic mitral (valve) prolapse; K57.92 Diverticulitis of intestine, part unspecified, without perforation or abscess without bleeding; M51.26 Other intervertebral disc displacement, lumbar region; L20.9 Atopic dermatitis, unspecified; Z79.01 Long term (current) use of anticoagulants; Z79.899 Other long term (current) drug therapy; Z88.6 Allergy status to analgesic agent; Z88.0 Allergy status to penicillin
CPT/HCPCS: 99283; 80053; 85025; 93005

== ENCOUNTER → 2024-09-15 10:27 | Outpatient (REF) | payer MEDICARE, OTHER, SELFPAY ==
[2024-09-15 11:25] LABS: % Basophils 0.8 % (0-2); % Eosinophils 2.3 % (0-6); % Immature Granulocytes 0.3 % (0-0.5); % Lymphocytes 38.1 % (20.5-51.1); % Neutrophils 51.5 % (42.2-75.2); Absolute Eosinophils 0.1 10^3/uL (0-0.7); Absolute Lymphocytes 1.5 10^3/uL (1.2-3.4); Absolute Monocytes 0.3 10^3/uL (0.1-0.6); Hematocrit 43.4 % (37.0-47.0); Hemoglobin 14.1 g/dL (12.0-16.0); Mean Corp Hgb Conc. 32.5 g/dL (33.0-37.0); Mean Corpuscular Hgb 29.3 pg (27.0-31.0); Mean Corpuscular Volume 90.2 fL (81.0-99.0); Mean Platelet Volume 10.3 fL (7.4-10.4); Nucleated Red Blood Cells % 0 %; Platelet Count 172 10^3/uL (130-400); Red Blood Cell Count 4.81 10^6/uL (4.20-5.40); Red Cell Dist. Width 12.8 % (11.5-14.5); White Blood Cell Count 3.9 10^3/uL (4.8-10.8)
[2024-09-15 12:09] LABS: ALT (SGPT) 24 U/L (0-35); AST (SGOT) 27 U/L (14-36); Albumin 4.3 g/dl (3.5-5.0); Alkaline Phosphatase 75 U/L (38-126); Blood Urea Nitrogen 12 mg/dl (7-17); Calcium 9.1 mg/dl (8.4-10.2); Carbon Dioxide 27 mmol/L (22-30); Chloride 102 mmol/L (98-107); Glucose 91 mg/dl (70-99); Potassium 4.1 mmol/L (3.5-5.1); Sodium 142 mmol/L (135-145); Total Bilirubin 1.6 mg/dl (0.2-1.3); Total Protein 7.1 g/dl (6.3-8.2); eGFR > 60.00
[2024-09-15 12:22] LABS: Free T3 3.78 pg/ml (2.77-5.27); Free T4 0.84 ng/dl (0.78-2.19)
[2024-09-15 12:36] LABS: TSH 3.81 uIU/ml (0.47-4.68)
== END ==
LOC: REG 10:27
PROVIDERS: ATTENDING PHYSICIAN Internal Medicine Endocrinology, Diabetes & Metabolism; FAMILY PHYSICIAN Internal Medicine
DX: E04.1 Nontoxic single thyroid nodule (principal)
CPT/HCPCS: 36415; 80053; 84439; 84443; 84481; 85025

== ENCOUNTER 2024-09-22 21:01 | Emergency (ER) | payer MEDICARE, OTHER, SELFPAY ==
[2024-09-22 21:02] VITALS: BMI 27.3
[2024-09-22 21:04] VITALS: BP 178/94
[2024-09-22 21:15] LABS: Urine Albumin Negative (Neg - Trace); Urine Bilirubin Negative (Negative); Urine Character Clear (Clear); Urine Color Straw; Urine Glucose Negative (Negative); Urine Ketone Negative (Negative); Urine Leukocyte Trace (Negative); Urine Nitrite Negative (Negative); Urine Occult Blood 2+ (Negative); Urine Urobilinogen Negative (Neg - 1+)
[2024-09-22 21:30] LABS: Urine Bacteria Few (Negative); Urine White Cell 0-2 /HPF (0-5)
--- NOTE | 2024-09-22 22:17 | ED.GENMED ---
History of Present Illness
General
Chief Complaint: Urinary Symptoms
Source: patient
Exam Limitations: none
Time Seen by Provider: 09/22/24 22:03
History of Present Illness
History of Present Illness:
This is a 64 year old female that comes in with c/o urinary tract infection symptoms. States that they were at their son's house and the had left. States that they were only on the road for about 10 min when she got the urge to urinate. State that
she has just urinated before they left. States tat she then started with right mid back pain. States that they had to stop every 10 min as she thought she needed to urinate. States that the pain is now in the lower abd. States that she has frequency
but no burning. Denies any fever, chills, chest pain, SOB, nausea, vomiting, diarrhea, headache, dizziness.
Past History
Past History
ED Past Medical History: Arrthythmia (Atrial fib), HTN and Other (atopic derm on Dupixant, MVP, Diverticulitis, )
ED Past Surgical History: Appendectomy, Gynecological and Other (Rhinoplasty, Partial thyroidectomy. Perineal reconstruction. Eye surgery)
Social History
Tobacco: Non-smoker
Alcohol: None
Drug: None
Personal:
Living: with family
Employment: Other
Family History
Family History: Other
Review of Systems
Review of Systems
All Other Systems: ROS reviewed and negative except as documented in HPI and ROS
Constitutional: Reports no symptoms; Denies fever or chills
EENT: Reports no symptoms
Respiratory: Reports no symptoms; Denies cough or trouble breathing
Cardiac: Reports no symptoms; Denies chest pain
ABD/GI: Reports abdominal pain; Denies nausea, vomiting or diarrhea
: Reports frequency and urgency; Denies dysuria
Musculoskeletal: Reports no symptoms
Skin: Reports no symptoms
Neurological: Reports no symptoms; Denies dizzy or headache
Psychiatric: Reports no symptoms
Phy Exam
General Physical Exam
General Presentation: mild distress
General age: appears stated age
General Skin: warm and dry
General Habitus: normal
General Mental: alert
General Hydration: appears well hydrated
ENT Exam
ENT Exam: TM's normal, pharynx normal and neck supple
Eye Exam
Eye Exam: EOMI
Cardiovascular Exam
Cardiovascular Exam: regular rate/rhythm, no edema and normal peripheral pulses
Pulmonary Exam
Pulmonary Exam: lungs clear, no respiratory distress, no rales, chest non tender, no crackles, no rhonchi, no wheezing and no cough
Gastrointestinal Exam
Gastrointestinal Exam: normal bowel sounds, non tender, soft, no organomegaly, no pulsatile mass, non distended and no cva tenderness
Musculoskeletal Exam
Musculoskeletal Exam: full ROM
Skin Exam
Skin Exam: normal color, warm/dry, no rash and no petechia
Psychiatric Exam
Psychiatric Exam: normal mood/affect
Course
Orders/Labs/Results
Orders:
Orders
09/22/24 21:07
Urinalysis Reflex To Culture Urgent
Date Specimen was Collected: 09/22/24
Time Specimen was Collected: 21:03
Urine Microscopic Reflex Cult Urgent
09/22/24 22:17
CT Abd/pel Without Iv Or Oral Urgent
Comment:
Reason For Exam: Right sided and lower abd pain
0.9% Sodium Chloride 1000 ml [Nss] 1,000 ml IV BOLUS
09/22/24 22:21
HYDROmorphone [Dilaudid] 0.5 mg IV NOW STA
Ondansetron Injectable [Zofran] 4 mg IV NOW STA
09/22/24 22:32
Complete Blood Count/With Diff Urgent
Comprehensive Metabolic Panel Urgent
Abnormal Lab Results
09/22/24 09/22/24
21:07 22:32
Glucose 115 H mg/dl
(70-99)
Ur Occult Blood Reflex 2+ A
(Negative)
Leukocyte Esterase Rfl Trace A
(Negative)
Urine RBC 3-6 A /HPF
(0-2)
Urine Bacteria (Reflex) Few A
(Negative)
09/22/24 22:32
09/22/24 22:32
Glucose nonfasting. Urine negative for infection.
Vital Signs
Initial and Last Documented VS:
Initial Vital Signs
Temp Pulse Resp BP Pulse Ox
98.4 F 94 16 178/94 100
09/22/24 21:04 09/22/24 21:04 09/22/24 21:04 09/22/24 21:04 09/22/24 21:04
Last Documented Vital Signs
Temp Pulse Resp BP Pulse Ox
98.4 F 94 16 178/94 99
09/22/24 21:04 09/22/24 21:04 09/22/24 21:04 09/22/24 21:04 09/22/24 22:45
MDM/Problems Addressed
Differential Diagnosis Includes:
Renal calculus, UTI
MDM/Problems Addressed:
This is a 64 year old female that comes in with c/o urinary frequency. State that she felt she had a UTI. State that she also had right sided back pain that moved to the lower abd.
Will check labs. Give IV fluids, CT can and medicate for pain.
Back into see patient. Explained that she has a 3mm stone that is almost to the bladder. Encouraged patient to increase her water intake to 8-8oz glasses daily. Will place patient on Flomax daily. Patient can use Tylenol 1000mg every 6 hours for
pain. Patient is on Eluiquis so will stay away from Ibuprofen. Will also sent a prescription for Zofran and Oxycodone for severe pain. Patient to strain her urine. Follow up with the Urologist. Return with any concerns.
Chronic conditions affecting care:
NA
Acute Exacerbation and/or Progression of Chronic Illness:
NA
*Radiology
Radiology exam reviewed: radiology read reviewed (CT night hawk-3mm stone at the right UVj resulting in mild right hydroureter. No bowel obstruction. Cholelithiasis. Incidentals: Diverticulosis without evidence of diverticulitis. No hepatic or
pancreatic mass. No abdominal aortic aneurysm. No acute osseous abnormality. No acute abnormality within) and other (CT cont- within the visualized lungs. No acute abnormality within the visualized soft tissues. )
*Pulse Oximetry
Patient hypoxic: no
*EKG
Interpreted by ED Provider?: NA
Rate: EKG- N/A
*Nuclear Medicine Medical Director Interpretation
Rate: Nuclear Medicine Medical Director- N/A
*Critical Care Note
Total Time (30-74mins, 75-104mins- exclusive of procedures): Not Applicable
ED Attending Note
-
Portions of this chart may have been created with voice recognition software.� Occasional wrong word or��sound alike� substitutions may have occurred due to the inherent limitations of voice recognition software.
Discharge Plan
Departure
Patient Disposition: Home (Routine Discharge)
Date of Disposition: 09/23/24
Time of Disposition: 00:22
Patient with high blood pressure during this ER visit?: Yes
Condition: Good
Covid-19: Not Applicable
Discharge Problem:
Renal calculus, right
Instructions: How to Strain Your Urine, Kidney Stone, Adult ED, BLOOD PRESSURE
Prescriptions:
New
tamsulosin [Flomax] 0.4 mg capsule
0.4 mg PO HS Qty: 7 0RF
ondansetron 4 mg tablet,disintegrating
4 mg PO Q8H PRN (Reason: nausea and vomiting) Qty: 10 0RF
oxycodone 5 mg tablet
5 mg PO Q6H PRN (Reason: Pain) Qty: 7 0RF
No Action
cholecalciferol (vitamin D3) [Vitamin D3] 25 mcg (1,000 unit) Tablet,Chewable
125 mcg PO DAILY
Dupixent Syringe 300 mg/2 mL Syringe
300 mg SC Q3W
B Complex Tablet Extended Release
1 tab PO DAILY
ascorbic acid (vitamin C) [Vitamin C] 500 mg Tablet
1,000 mg PO DAILY
valsartan 40 mg tablet
40 mg PO DAILY Qty: 30 0RF
zinc sulfate 25 mg zinc (110 mg) Tablet
25 mg PO DAILY
diltiazem HCl 120 mg Capsule,Extended Release 24 Hr
120 mg PO DAILY
coenzyme Q10 [CoQ-10] 100 mg Capsule
100 mg PO DAILY
Eliquis 5 mg Tablet
5 mg PO BID
lorazepam [Ativan] 0.5 mg tablet
0.5 mg PO DAILY PRN (Reason: anxiety) Qty: 10 0RF
Referrals:
Jai Hooks DO [Family Provider] -
Faustino Apodaca MD [Active] - Follow up in 5-7 days
Activity Restrictions/Additional Instructions:
As discussed, you have a 3mm stone that is almost to the bladder. Please increase your water intake to 8-8oz glasses daily. You have had three prescriptions sent to the Pharmacy. The first is Flomax that will help relax the smooth muscle so you can
pass the stone. The Second is Zofran that will help with any nausea/vomiting and the last is a Narcotic pain medication for severe pain. Please eat before taking the narcotic. Please no driving or alcohol when taking. Please strain your urine.
Please use Tylenol 1000mg every 6 hours for lesser pain. Follow up with the urologist in the next 5-7 days. Please increase your water intake to 8-8oz glasses daily. IF YOU HAVE ANY OTHER CONCERNS PLEASE RETURN TO THE EMERGENCY ROOM.
Interventions
Interventions:
*Risk Screen - Suicide Last Done: 09/22/24 21:04
*General Assessment Last Done: 09/22/24 22:46
*Neglect/Abuse Screening Last Done: 09/22/24 21:04
*ED COVID-19 Vaccine History Last Done: 09/22/24 22:46
ED-Female Genitourinary Assessment Last Done: 09/22/24 22:46
Discharge Date and Time
Print Language: GREENLANDIC
[2024-09-22] MEDS: NSS 1000 IV (22:32)
[2024-09-22] MEDS: DILAUDID 0.5 MG IV (22:34)
[2024-09-22] MEDS: ZOFRAN 4 MG IV (22:34)
[2024-09-22 22:51] LABS: % Basophils 0.5 % (0-2); % Eosinophils 1.6 % (0-6); % Immature Granulocytes 0.2 % (0-0.5); % Monocytes 6.3 % (1.7-9.3); % Neutrophils 64.4 % (42.2-75.2); Absolute Eosinophils 0.1 10^3/uL (0-0.7); Absolute Lymphocytes 1.7 10^3/uL (1.2-3.4); Absolute Monocytes 0.4 10^3/uL (0.1-0.6); Absolute Neutrophils 4.1 10^3/uL (1.4-6.5); Hematocrit 41.1 % (37.0-47.0); Hemoglobin 13.9 g/dL (12.0-16.0); Mean Corp Hgb Conc. 33.8 g/dL (33.0-37.0); Mean Corpuscular Hgb 29.5 pg (27.0-31.0); Mean Corpuscular Volume 87.3 fL (81.0-99.0); Nucleated Red Blood Cells % 0 %; Platelet Count 184 10^3/uL (130-400); Red Blood Cell Count 4.71 10^6/uL (4.20-5.40); Red Cell Dist. Width 12.8 % (11.5-14.5); White Blood Cell Count 6.3 10^3/uL (4.8-10.8)
[2024-09-22 23:00] VITALS: BP 125/61
[2024-09-22 23:05] LABS: ALT (SGPT) 23 U/L (0-35); AST (SGOT) 30 U/L (14-36); Albumin 4.6 g/dl (3.5-5.0); Alkaline Phosphatase 122 U/L (38-126); Blood Urea Nitrogen 14 mg/dl (7-17); Calcium 9.4 mg/dl (8.4-10.2); Carbon Dioxide 25 mmol/L (22-30); Chloride 103 mmol/L (98-107); Estimated Creatinine Clearance 65 ml/min; Glucose 115 mg/dl (70-99); Potassium 3.8 mmol/L (3.5-5.1); Sodium 139 mmol/L (135-145); Total Bilirubin 1.1 mg/dl (0.2-1.3); Total Protein 7.3 g/dl (6.3-8.2); eGFR > 60.00
[2024-09-23] MEDS: FLOMAX 0.4 MG PO (00:35)
[2024-09-23] MEDS: TYLENOL 1000 MG PO (00:35)
[2024-09-23 00:59] VITALS: BP 128/62
== END 2024-09-23 01:00 | disposition home or self-care (01) ==
LOC: EMR 21:01
PROVIDERS: Clinical Nurse Specialist Family Health; Emergency Medicine; EMERGENCY PHYSICIAN Emergency Medicine; FAMILY PHYSICIAN Internal Medicine
DX: N20.0 Calculus of kidney (principal); N13.4 Hydroureter; M54.6 Pain in thoracic spine; R35.0 Frequency of micturition; I48.91 Unspecified atrial fibrillation; I10 Essential (primary) hypertension; I34.1 Nonrheumatic mitral (valve) prolapse; K57.92 Diverticulitis of intestine, part unspecified, without perforation or abscess without bleeding; Z79.01 Long term (current) use of anticoagulants; Z88.6 Allergy status to analgesic agent; Z88.0 Allergy status to penicillin
CPT/HCPCS: 99284; 96374; 96375; 96361; 74176; 80053; 81003; 81015; 85025

== ENCOUNTER → 2024-10-29 12:36 | Outpatient (REF) | payer MEDICARE, OTHER, SELFPAY | LOC: REG 12:36 | PROVIDERS: ATTENDING PHYSICIAN Internal Medicine Endocrinology, Diabetes & Metabolism; FAMILY PHYSICIAN Internal Medicine | DX: E04.1 Nontoxic single thyroid nodule (principal) | CPT/HCPCS: 36415; 84443 ==

== ENCOUNTER → 2024-12-22 10:57 | Outpatient (REF) | payer MEDICARE, OTHER, SELFPAY | LOC: REG 10:57 | PROVIDERS: ATTENDING PHYSICIAN Internal Medicine Endocrinology, Diabetes & Metabolism; FAMILY PHYSICIAN Internal Medicine | DX: E04.1 Nontoxic single thyroid nodule (principal) | CPT/HCPCS: 36415; 84443 ==

== ENCOUNTER 2025-03-25 14:33 | Emergency (ER) | payer MEDICARE, OTHER, SELFPAY ==
[2025-03-25 14:35] VITALS: BP 168/78
--- NOTE | 2025-03-25 16:56 | ED.SKININJ ---
HPI-Injury
General
Chief Complaint: Bite
Source: patient
Time Seen by Provider: 03/25/25 16:48
History of Present Illness-Injury
Initial Injury comments:
64-year-old female with past medical history of atrial fibrillation, hypertension, mitral valve prolapse presenting to the emergency department for evaluation after she noticed some erythema and tenderness to the right mid calf starting a couple of
days ago, today symptoms worse prompting her to come to the ER. Patient states she was googling pictures of the rash/area of erythema and was concern for possible spider bite. Triage states that she was bit by a spider however patient states she
is overall unsure what potentially caused the suspected infection. Patient denies any fevers, chills, rigors, no tick bites, history of similar and no other concerns.
Past History
Past History
ED Past Medical History: Arrthythmia (Atrial fib), HTN, Valvular disease and Other (atopic derm on Dupixant, MVP, Diverticulitis, )
ED Past Surgical History: Appendectomy, Gynecological and Other (Rhinoplasty, Partial thyroidectomy. Perineal reconstruction. Eye surgery)
Social History
Tobacco: Non-smoker
Alcohol: None
Drug: None
Personal:
Living: with family
Employment: Other
Family History
Family History: Other
Review of Systems
Review of Systems
All Other Systems: ROS reviewed and negative except as documented in HPI and ROS
Phy Exam
Physical Exam
Physical Exam:
GENERAL: Alert , in no apparent distress
EYE: conjunctiva clear
Head: Normocephalic atraumatic
NECK: Supple,
ENT: mmm.
LUNGS: no acute respiratory distress
NEUROLOGICAL: Alert and oriented
SKIN: Warm and dry, posterior right mid calf has an approximate 7 x 4 cm area of erythema with slight induration central with increased tenderness and warmth to the touch
MUSCULOSKELETAL: well perfused.
PSYCH: Normal and appropriate interaction.
Scores
Heart Failure Risk
Heart Failure Risk Score: Not Applicable
Heart Score for Chest Pain Patients
STEMI patient?: Not applicable
Withdrawal Assessment of Alcohol
Withdrawal Assessment Completed?: Not applicable
Course
Vital Signs
Initial and Last Documented VS:
Initial Vital Signs
Temp Pulse Resp BP Pulse Ox
98.5 F 83 16 168/78 98
03/25/25 14:35 03/25/25 14:35 03/25/25 14:35 03/25/25 14:35 03/25/25 14:35
Last Documented Vital Signs
Temp Pulse Resp BP Pulse Ox
98.5 F 83 16 168/78 98
03/25/25 14:35 03/25/25 14:35 03/25/25 14:35 03/25/25 14:35 03/25/25 14:35
MDM/Problems Addressed
Differential Diagnosis Includes:
Cellulitis, abscess, phlebitis, erythema migrans secondary to Lyme, contact dermatitis, shingles
MDM/Problems Addressed:
64-year-old female presented to the ER for evaluation of an area of erythema, warmth and pain to the right posterior calf. There does appear to be a small break in the skin proximally. Patient states she is unsure as to how this occurred. No
fevers, she is immunocompetent. Will treat with course of Keflex. Skin marking to helper teacher patient in if area is improving with the antibiotics. Discussed return precautions. Stable for discharge home.
*Pulse Oximetry
Patient hypoxic: no
*Critical Care Note
Total Time (30-74mins, 75-104mins- exclusive of procedures): Not Applicable
ED Attending Note
-
Portions of this chart may have been created with voice recognition software.� Occasional wrong word or��sound alike� substitutions may have occurred due to the inherent limitations of voice recognition software.
Discharge Plan
Departure
Patient Disposition: Home (Routine Discharge)
Date of Disposition: 03/25/25
Time of Disposition: 16:56
Patient with high blood pressure during this ER visit?: Yes
Discharge Problem:
Cellulitis of right lower extremity
Instructions: Cellulitis (skin infection) in adults - Discharge instructions
Prescriptions:
New
cephalexin 500 mg tablet
500 mg PO BID 10 Days Qty: 20 0RF
No Action
cholecalciferol (vitamin D3) [Vitamin D3] 25 mcg (1,000 unit) Tablet,Chewable
125 mcg PO DAILY
Dupixent Syringe 300 mg/2 mL Syringe
300 mg SC Q3W
B Complex Tablet Extended Release
1 tab PO DAILY
ascorbic acid (vitamin C) [Vitamin C] 500 mg Tablet
1,000 mg PO DAILY
valsartan 40 mg tablet
40 mg PO DAILY Qty: 30 0RF
zinc sulfate 25 mg zinc (110 mg) Tablet
25 mg PO DAILY
diltiazem HCl 120 mg Capsule,Extended Release 24 Hr
120 mg PO DAILY
coenzyme Q10 [CoQ-10] 100 mg Capsule
100 mg PO DAILY
Eliquis 5 mg Tablet
5 mg PO BID
lorazepam [Ativan] 0.5 mg tablet
0.5 mg PO DAILY PRN (Reason: anxiety) Qty: 10 0RF
tamsulosin [Flomax] 0.4 mg capsule
0.4 mg PO HS Qty: 7 0RF
ondansetron 4 mg tablet,disintegrating
4 mg PO Q8H PRN (Reason: nausea and vomiting) Qty: 10 0RF
oxycodone 5 mg tablet
5 mg PO Q6H PRN (Reason: Pain) Qty: 7 0RF
Referrals:
Jai Hooks DO [Family Provider, Internal Medicine]
Interventions
Interventions:
*Risk Screen - Suicide Last Done: 03/25/25 14:39
*Neglect/Abuse Screening Last Done: 03/25/25 14:35
*ED- Fall Risk Assessment Last Done: 03/25/25 14:35
ED-Skin Assessment Last Done: 03/25/25 16:57
Discharge Date and Time
Print Language: SPANISH
== END 2025-03-25 18:01 | disposition home or self-care (01) ==
LOC: EMR 14:33
PROVIDERS: EMERGENCY PHYSICIAN Emergency Medicine; FAMILY PHYSICIAN Internal Medicine
DX: L03.115 Cellulitis of right lower limb (principal); I10 Essential (primary) hypertension; I48.91 Unspecified atrial fibrillation
CPT/HCPCS: 99283

== ENCOUNTER → 2025-06-13 12:55 | Outpatient (REF) | payer MEDICARE, OTHER, SELFPAY | LOC: REG 12:55 | PROVIDERS: ATTENDING PHYSICIAN Internal Medicine Endocrinology, Diabetes & Metabolism; FAMILY PHYSICIAN Internal Medicine | DX: E04.2 Nontoxic multinodular goiter (principal) | CPT/HCPCS: 36415; 76536; 84443 ==

== ENCOUNTER → 2025-07-27 12:54 | Outpatient (REF) | payer MEDICARE, OTHER, SELFPAY ==
[2025-07-27 13:20] VITALS: BP 162/76; BP_SYST 82
== END ==
LOC: RADI 12:54
PROVIDERS: ATTENDING PHYSICIAN Internal Medicine Endocrinology, Diabetes & Metabolism; FAMILY PHYSICIAN Internal Medicine
DX: E04.2 Nontoxic multinodular goiter (principal)
CPT/HCPCS: 10005; 10006; 88173

== ENCOUNTER 2025-08-31 01:12 | Emergency (ER) | payer MEDICARE, OTHER, SELFPAY ==
[2025-08-31 01:17] VITALS: BP 180/100
[2025-08-31 01:36] VITALS: BP 153/77
[2025-08-31 01:53] LABS: Hematocrit 41.5 % (37.0-47.0); Hemoglobin 14.2 g/dL (12.0-16.0); Mean Corp Hgb Conc. 34.2 g/dL (33.0-37.0); Mean Corpuscular Volume 85.4 fL (81.0-99.0); Nucleated Red Blood Cells % 0 %; Platelet Count 168 10^3/uL (130-400); Red Cell Dist. Width 12.5 % (11.5-14.5)
[2025-08-31 02:00] VITALS: BP 143/74
[2025-08-31 02:15] LABS: ALT (SGPT) 20 U/L (0-35); AST (SGOT) 34 U/L (14-36); Albumin 4.4 g/dl (3.5-5.0); Alkaline Phosphatase 91 U/L (38-126); Blood Urea Nitrogen 19 mg/dl (7-17); Calcium 9.3 mg/dl (8.4-10.2); Carbon Dioxide 26 mmol/L (22-30); Chloride 103 mmol/L (98-107); Glucose 112 mg/dl (70-99); Potassium 3.9 mmol/L (3.5-5.1); Sodium 135 mmol/L (135-145); Total Protein 7.5 g/dl (6.3-8.2); eGFR > 60.00
[2025-08-31 02:26] LABS: Troponin I < 0.012 ng/ml
[2025-08-31 04:00] VITALS: BP 133/72
--- NOTE | 2025-08-31 04:07 | ED.GENMED ---
History of Present Illness
General
Chief Complaint: Blood Pressure Problem
Source: patient
Exam Limitations: none
Time Seen by Provider: 08/31/25 02:11
Nursing documentation reviewed up to this point in time: agreed with
History of Present Illness
History of Present Illness:
Note:
CHIEF COMPLAINT(S)
Palpitations and elevated heart rate upon waking.
HISTORY OF PRESENT ILLNESS
The patient is a 65-year-old female with pmh of one episode of afib, hyperthyroidism, MVP, who awoke from sleep with a sudden onset of heart palpitations and a rapid heart rate. She noted the sensation of her heart �racing� and a high pulse. She had
gone to bed feeling upset due to the events of the day. Upon waking, she experienced an intense sensation of pressure in her head, which she associates with elevated blood pressure; however, she did not experience chest pain or shortness of breath.
The rapid heart rate 170s-180s persisted for approximately 30 to 45 minutes before arriving at the emergency department. The patient has a past history of one episode of atrial fibrillation approximately one year and three months ago, but she
described this episode as feeling different from atrial fibrillation. She expressed concern that the rapid heart rate might escalate into atrial fibrillation. She takes Diltiazem and Valsartan regularly, with no recent changes in her medication
regimen. The patient also mentioned recent sinus congestion but denied fever or significant cough. She is on eliquis. She is also concerned about her BP being elevated. She denies headache. She denies syncopal episodes. She is feeling back to her
baseline at this time.
PAST MEDICAL AND SURGICAL HISTORY
The patient mentioned having thyroid nodules monitored and is currently taking Methimazole for an overactive thyroid, which was prescribed due to symptoms of panic attacks and anxiety.
SOCIAL DETERMINANTS AFFECTING HEALTH
The patient reported feeling upset by day-to-day events, and having a bizarre dream which also awoke her from sleep
MEDICATIONS
- Diltiazem
- Valsartan 40 mg
- Methimazole
REVIEW OF SYSTEMS
- Cardiovascular: Palpitations, rapid heart rate noted upon waking. No chest pain.
- Respiratory: No shortness of breath.
- Ear, Nose, and Throat: Sinus congestion acknowledged, no fever, no significant cough.
PHYSICAL EXAM
General: Alert, no acute distress.
Skin: Warm, dry.
Head: Normocephalic, atraumatic.
Neck: Supple, trachea midline.
Eye Ears, nose, mouth and throat: Oral mucosa moist.
Cardiovascular: Normal peripheral perfusion, No edema. Heart sounds normal, no murmurs.
Respiratory: Respirations are non-labored. No wheezes, rales, or rhonchi.
Gastrointestinal : Abdomen nondistended.
Back: Normal range of motion, Normal alignment.
Musculoskeletal: Normal ROM, normal strength.
Neurological: CN II-XII intact. Alert and oriented to person, place, time, and situation, No focal neurological deficit observed.
Psychiatric: Cooperative, appropriate mood & affect.
PROBLEM LIST
- Acute: Palpitations, elevated heart rate.
- Chronic: Overactive thyroid, history of atrial fibrillation.
PLAN
1. Continue monitoring heart on telemtry and blood pressure.
2. Recommend follow-up with florist manager, Dr. Guzman, on the scheduled appointment of the , with attempts to move the appointment forward if possible.
3. Consider Holter monitor as outpatient to assess for potential arrhythmic episodes.
4. Conduct thyroid function test (TSH level) to evaluate possible thyroid-related contributions to symptoms.
5. Consider discussing possible stress management interventions given recent emotional stress.
DIFFERENTIAL DIAGNOSIS
The Differential Diagnosis includes, in no particular order and is not limited to:
1. Atrial Fibrillation
2. Supraventricular Tachycardia
3. Anxiety or Panic Attack
4. Hyperthyroidism
5. Primary Hypertension
6. Dysrhythmia secondary to medication or electrolyte imbalance
7. Sinus Tachycardia
8. Thyrotoxicosis
9. Stress-induced cardiac events
10. Palpitation secondary to sinus congestion
CHART REVIEW
Reviewed ER physician recommendation from 03/25/2025
Reviewed ER physician notation from 09/22/24
MDM/disposition
65-year-old female with history of A-fib, hypertension, MVP presents to the ER today with concerns of transient episode of tachycardia and elevated blood pressure. She reports that she is upset from the events of the day and woke up out of her
sleep and felt her heart was racing. She checked her heart rate and noticed that her heart rate was in the 170s to 180s. She also felt and checked that her blood pressure was elevated. Currently her heart rate came down and her blood pressure
came down and she is currently asymptomatic. She went into A-fib once in the past and thought that this was going to turn into A-fib. Labs reviewed, CBC unremarkable, CMP unremarkable. Troponin undetectable. Suspect possible transient episode of
SVT versus A-fib versus sinus tachycardia from stress. Discussed close follow-up with cardiology as outpatient. TSH is elevated 6.28 with normal T4. Discussed case with ED attending. advised patient to skip today's dose of thyroid medication.
Patient will also follow-up with community health education coordinator. Patient stable for discharge.
Past History
Past History
ED Past Medical History: Arrthythmia (Atrial fib), HTN, Valvular disease and Other (atopic derm on Dupixant, MVP, Diverticulitis, )
ED Past Surgical History: Appendectomy, Gynecological and Other (Rhinoplasty, Partial thyroidectomy. Perineal reconstruction. Eye surgery)
Social History
Tobacco: Non-smoker
Alcohol: None
Drug: None
Personal:
Living: with family
Employment: Other
Family History
Family History: Other
Phy Exam
Physical Exam
Physical Exam:
see hpi
Course
Orders/Labs/Results
Orders:
Orders
08/31/25 01:21
Electrocardiogram (*1) Urgent
Reason for Study: Other
Other Reason for Exam: Respiratory Distress
Cardiac Monitoring- Treatment ONCE
EKG- Treatment ONCE
IV Insert/Care/Rem.- Treatment PRN
CR Chest - 2 Views Urgent
Comment:
Reason For Exam: respiratory distress
O2 Therapy [RESP] Urgent
Titrate/Wean O2 to maintain O2 sat greater than (%): 93
Special Instructions: TO MAINTAIN CONTINUOUS O2 SATS >/= 93%
Pulse Ox/cont/shift [RESP] Urgent
Quantity: 1
Special Instructions: continuous pulse ox
08/31/25 01:42
Complete Blood Count/With Diff Urgent
Comprehensive Metabolic Panel Urgent
Free T4 Urgent
NT-proBNP Urgent
TSH Reflex To Free T4 Urgent
Comment: ADD ON
Troponin I Urgent
08/31/25 03:12
Add On- LAB Urgent
Comments:: add on
Tests Added?: TSH reflex t4
Abnormal Lab Results
08/31/25
01:42
BUN 19 H mg/dl
(7-17)
Glucose 112 H mg/dl
(70-99)
Total Bilirubin 1.5 H mg/dl
(0.2-1.3)
TSH (Reflex) 6.28 H uIU/ml
(0.47-4.68)
08/31/25 01:42
08/31/25 01:42
Vital Signs
Initial and Last Documented VS:
Initial Vital Signs
Temp Pulse Resp BP Pulse Ox
98.4 F 93 24 180/100 99
08/31/25 01:17 08/31/25 01:17 08/31/25 01:17 08/31/25 01:17 08/31/25 01:17
Last Documented Vital Signs
Temp Pulse Resp BP Pulse Ox
98.4 F 72 22 134/69 97
08/31/25 01:17 08/31/25 04:51 08/31/25 04:51 08/31/25 04:51 08/31/25 04:51
*Pulse Oximetry
SaO2: 97
Oxygen Mode of Delivery: Room air
Patient hypoxic: no
*Critical Care Note
Total Time (30-74mins, 75-104mins- exclusive of procedures): Not Applicable
ED Attending Note
-
Portions of this chart may have been created with voice recognition software.� Occasional wrong word or��sound alike� substitutions may have occurred due to the inherent limitations of voice recognition software.
Discharge Plan
Departure
Patient Disposition: Home (Routine Discharge)
Date of Disposition: 08/31/25
Time of Disposition: 04:42
Patient with high blood pressure during this ER visit?: Yes
Condition: Good
Discharge Problem:
Palpitations, Hypertension, Elevated TSH
Instructions: High Blood Pressure (DC), Heart Palpitations
Prescriptions:
No Action
cholecalciferol (vitamin D3) [Vitamin D3] 25 mcg (1,000 unit) Tablet,Chewable
125 mcg PO DAILY
Dupixent Syringe 300 mg/2 mL Syringe
300 mg SC Q3W
B Complex Tablet Extended Release
1 tab PO DAILY
ascorbic acid (vitamin C) [Vitamin C] 500 mg Tablet
1,000 mg PO DAILY
valsartan 40 mg tablet
40 mg PO DAILY Qty: 30 0RF
zinc sulfate 25 mg zinc (110 mg) Tablet
25 mg PO DAILY
diltiazem HCl 120 mg Capsule,Extended Release 24 Hr
120 mg PO DAILY
coenzyme Q10 [CoQ-10] 100 mg Capsule
100 mg PO DAILY
Eliquis 5 mg Tablet
5 mg PO BID
lorazepam [Ativan] 0.5 mg tablet
0.5 mg PO DAILY PRN (Reason: anxiety) Qty: 10 0RF
methimazole 5 mg Tablet
5 mg PO DAILY
Referrals:
Jai Hooks I. DO [Family Provider, Internal Medicine]
Activity Restrictions/Additional Instructions:
Please call your community health education coordinator for follow up--your TSH today was 6.28.
Please skip tomorrow's dose of methimazole.
PLEASE RETURN TO THE ER SHOULD YOU DEVELOP PALPITATIONS, CHEST PAIN, SHORTNESS OF BREATH, FAINTING SPELLS, JAW PAIN, LEFT ARM PAIN, OR ANY OTHER SIGNS OR SYMPTOMS RECENTLY.
Interventions
Interventions:
*Risk Screen - Suicide Last Done: 08/31/25 01:17
*General Assessment Last Done: 08/31/25 01:17
*Neglect/Abuse Screening Last Done: 08/31/25 01:17
*ED- Fall Risk Assessment Last Done: 08/31/25 01:17
*ED COVID-19 Vaccine History Last Done: 08/31/25 01:17
*ED Influenza Vaccine History Last Done: 08/31/25 01:17
*Nursing Disposition Last Done: 08/31/25 04:53
ED- Cardiac Assessment Last Done: 08/31/25 01:34
ED- Neurological Assessment Last Done: 08/31/25 01:34
ED- Pulmonary Assessment Last Done: 08/31/25 01:34
Discharge Date and Time
Discharge Date/Time: 08/31/25 05:00
Print Language: CYMRO
[2025-08-31 04:51] VITALS: BP 134/69
== END 2025-08-31 05:00 | disposition home or self-care (01) ==
LOC: EMR 01:12
PROVIDERS: EMERGENCY PHYSICIAN Student in an Organized Health Care Education/Training Program; FAMILY PHYSICIAN Internal Medicine
DX: R00.2 Palpitations (principal); E05.90 Thyrotoxicosis, unspecified without thyrotoxic crisis or storm; I10 Essential (primary) hypertension; I48.91 Unspecified atrial fibrillation; Z79.01 Long term (current) use of anticoagulants; Z90.49 Acquired absence of other specified parts of digestive tract
CPT/HCPCS: 99285; 71046; 80053; 83880; 84439; 84443; 84484; 85025; 93005

== ENCOUNTER 2025-10-11 09:27 | Emergency (ER) | payer MEDICARE, OTHER, SELFPAY ==
[2025-10-11 09:31] VITALS: BP 149/102
[2025-10-11 09:59] LABS: Hematocrit 43.2 % (37.0-47.0); Hemoglobin 14.5 g/dL (12.0-16.0); Mean Corp Hgb Conc. 33.6 g/dL (33.0-37.0); Mean Corpuscular Volume 86.6 fL (81.0-99.0); Nucleated Red Blood Cells % 0 %; Platelet Count 153 10^3/uL (130-400); Red Cell Dist. Width 12.8 % (11.5-14.5)
[2025-10-11 10:12] LABS: ALT (SGPT) 21 U/L (0-35); AST (SGOT) 25 U/L (14-36); Albumin 4.4 g/dl (3.5-5.0); Alkaline Phosphatase 110 U/L (38-126); Blood Urea Nitrogen 10 mg/dl (7-17); Calcium 8.9 mg/dl (8.4-10.2); Carbon Dioxide 26 mmol/L (22-30); Chloride 103 mmol/L (98-107); Glucose 116 mg/dl (70-99); Potassium 4.1 mmol/L (3.5-5.1); Sodium 135 mmol/L (135-145); Total Protein 7.5 g/dl (6.3-8.2); eGFR > 60.00
[2025-10-11 10:19] LABS: COVID-19 Antigen Negative (Negative)
--- NOTE | 2025-10-11 11:41 | ED.GENMED ---
History of Present Illness
General
Chief Complaint: Cold/Flu/URI Symptoms
Source: patient
Time Seen by Provider: 10/11/25 11:34
History of Present Illness
History of Present Illness:
65-year-old female with past medical history of atrial fibrillation, hypertension, mitral valve prolapse, previous diverticulitis presenting to the ER for evaluation of cold and flulike symptoms that started 2 days ago including cough, body aches,
generalized malaise and low-grade fevers. Patient states a secondary concern of possible Lyme's as she was bit by a tick 6 months ago, treated at the time but unsure if symptoms are related today. No sick contacts, recent travel or recent
antibiotics. Labs and workup had been initiated on arrival, the patient did test positive for influenza A.
Past History
Past History
ED Past Medical History: Arrthythmia (Atrial fib), HTN, Valvular disease and Other (atopic derm on Dupixant, MVP, Diverticulitis, )
ED Past Surgical History: Appendectomy, Gynecological and Other (Rhinoplasty, Partial thyroidectomy. Perineal reconstruction. Eye surgery)
Social History
Tobacco: Non-smoker
Alcohol: None
Drug: None
Personal:
Living: with family
Employment: Other
Family History
Family History: Other
Review of Systems
Review of Systems
All Other Systems: ROS reviewed and negative except as documented in HPI and ROS
Phy Exam
Physical Exam
Physical Exam:
GENERAL: Alert , in no apparent distress, Persistent cough throughout the exam
EYE: conjunctiva clear
Head: Normocephalic atraumatic
NECK: Supple,
ENT: mmm.
LUNGS: no acute respiratory distress
NEUROLOGICAL: Alert and oriented
SKIN: Warm and dry, skin intact.
MUSCULOSKELETAL: well perfused.
PSYCH: Normal and appropriate interaction.
Scores
Heart Failure Risk
Heart Failure Risk Score: Not Applicable
Heart Score for Chest Pain Patients
STEMI patient?: Not applicable
Withdrawal Assessment of Alcohol
Withdrawal Assessment Completed?: Not applicable
Course
Orders/Labs/Results
Orders:
Orders
10/11/25 09:36
CR Chest - 2 Views Urgent
Comment:
Reason For Exam: suspected infection
10/11/25 09:44
COVID-19 Antigen Urgent
Source: Nasal Swab
Complete Blood Count/With Diff Urgent
Comprehensive Metabolic Panel Urgent
Lyme Progressive Urgent
Influenza A+B Rapid Molecular Urgent
MARIA ELENA Source: Nasal Swab
Specimen Description:
Abnormal Lab Results
10/11/25
09:44
Absolute Lymphs (auto) 0.4 L 10^3/uL
(1.2-3.4)
Neutrophils % 86.9 H %
(42.2-75.2)
Lymphocytes % 5.3 L %
(20.5-51.1)
Glucose 116 H mg/dl
(70-99)
Total Bilirubin 1.8 H mg/dl
(0.2-1.3)
10/11/25 09:44
10/11/25 09:44
Vital Signs
Initial and Last Documented VS:
Initial Vital Signs
Temp Pulse Resp BP Pulse Ox
100.3 F 120 18 149/102 97
10/11/25 09:31 10/11/25 09:31 10/11/25 09:31 10/11/25 09:31 10/11/25 09:31
Last Documented Vital Signs
Temp Pulse Resp BP Pulse Ox
100.3 F 120 18 149/102 97
10/11/25 09:31 10/11/25 09:31 10/11/25 09:31 10/11/25 09:31 10/11/25 11:41
MDM/Problems Addressed
Differential Diagnosis Includes:
Flu
Covid
Pneumonia
Less concern for lyme given time of year
MDM/Problems Addressed:
65-year-old female presented to ER for evaluation of flulike symptoms over the last 48 hours. Patient did test positive for influenza A on arrival. I do suspect this is the cause for her symptoms. I have less concern for Lyme given the time of
year although Lyme titer was still sent. Discussed risk first benefit of Tamiflu, patient declines Tamiflu at this time. Continue supportive care at home. Aware of return precautions to the ER.
*Pulse Oximetry
SaO2: 97
Oxygen Mode of Delivery: Room air
Patient hypoxic: no
*Critical Care Note
Total Time (30-74mins, 75-104mins- exclusive of procedures): Not Applicable
ED Attending Note
-
Portions of this chart may have been created with voice recognition software.� Occasional wrong word or��sound alike� substitutions may have occurred due to the inherent limitations of voice recognition software.
Discharge Plan
Departure
Patient Disposition: Home (Routine Discharge)
Date of Disposition: 10/11/25
Time of Disposition: 11:41
Patient with high blood pressure during this ER visit?: Yes
Discharge Problem:
Influenza A
Instructions: Flu in adults (DC)
Prescriptions:
No Action
cholecalciferol (vitamin D3) [Vitamin D3] 25 mcg (1,000 unit) Tablet,Chewable
125 mcg PO DAILY
Dupixent Syringe 300 mg/2 mL Syringe
300 mg SC Q3W
B Complex Tablet Extended Release
1 tab PO DAILY
ascorbic acid (vitamin C) [Vitamin C] 500 mg Tablet
1,000 mg PO DAILY
valsartan 40 mg tablet
40 mg PO DAILY Qty: 30 0RF
zinc sulfate 25 mg zinc (110 mg) Tablet
25 mg PO DAILY
diltiazem HCl 120 mg Capsule,Extended Release 24 Hr
120 mg PO DAILY
coenzyme Q10 [CoQ-10] 100 mg Capsule
100 mg PO DAILY
Eliquis 5 mg Tablet
5 mg PO BID
lorazepam [Ativan] 0.5 mg tablet
0.5 mg PO DAILY PRN (Reason: anxiety) Qty: 10 0RF
methimazole 5 mg Tablet
5 mg PO DAILY
Interventions
Interventions:
*Risk Screen - Suicide (C-SSRS) Last Done: 10/11/25 09:31
ED- Pulmonary Assessment Last Done: 10/11/25 11:45
Discharge Date and Time
Print Language: MAURITANIAN
[2025-10-13 16:44] LABS: Lyme Antibody Screen, EIA Negative (Negative)
== END 2025-10-11 12:03 | disposition home or self-care (01) ==
LOC: EMR 09:27
PROVIDERS: Student in an Organized Health Care Education/Training Program; EMERGENCY PHYSICIAN Emergency Medicine; FAMILY PHYSICIAN Internal Medicine
DX: J10.1 Influenza due to other identified influenza virus with other respiratory manifestations (principal); I48.91 Unspecified atrial fibrillation; I34.1 Nonrheumatic mitral (valve) prolapse; I10 Essential (primary) hypertension; L20.9 Atopic dermatitis, unspecified
CPT/HCPCS: 99284; 71046; 80053; 85025; 86618; 87502; 87811